=== PATIENT | male | born 1970 | race Caucasian/White ===

== ENCOUNTER 2018-01-05 17:24 | Emergency (ER) | payer SELFPAY ==
[2018-01-05 17:49] VITALS: TEMP 98.8
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
[2018-01-05 18:53] VITALS: BP 122/71; PULSE 79; RESP 16; O2SAT 98
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
== END 2018-01-05 18:53 | disposition home or self-care (01) ==
LOC: C.ER 17:24
DX: S20.219A Contusion of unspecified front wall of thorax, initial encounter (principal); S60.212A Contusion of left wrist, initial encounter; V49.9XXA Car occupant (driver) (passenger) injured in unspecified traffic accident, initial encounter; E11.9 Type 2 diabetes mellitus without complications
CPT/HCPCS: 70450; 71046; 72125; 73110; 96372; 99284; J1885